=== PATIENT | female | born 1945 | race African-American/Black ===

== ENCOUNTER 2019-05-22 16:35 | Emergency (ER) | payer MEDICARE, MEDICAID ==
[~2019-05-22] VITALS: Ht 170.2 cm; Wt 91.0 kg
[2019-05-22] MEDS ORDERED: SODIUM CHLORIDE 0.9% 1,000 ML IV ONE (22:33)
[2019-05-22 23:10] LABS: BASOPHILS % 0.4 % (0.0-2.0); EOSINOPHILS % 3.6 % (0.0-5.0); HEMATOCRIT. 34.8 % (36.0-48.0); HEMOGLOBIN. 11.5 g/dL (12.0-16.0); LYMPHOCYTES % 35.9 % (20.0-50.0); MEAN CORPUSCULAR HEMOGLOBIN 27.4 pg (28.0-32.0); MEAN PLATELET VOLUME 9.4 fl (7.4-10.4); MONOCYTES % 6.4 % (2.0-8.0); NEUTROPHILS % 53.7 % (40.0-76.0); PLATELET 241 x1000/uL (130-400); RED CELL DISTRIBUTION WIDTH 15.2 % (11.6-14.6)
[2019-05-22 23:14] LABS: CHLORIDE 113 mEq/L (98-107)
[2019-05-22 23:18] LABS: PROTHROMBIN TIME 10.1 sec (9.6-11.0)
[2019-05-23 01:22] LABS: CLARITY URINE CLEAR (CLEAR); COLOR URINE YELLOW (YELLOW); KETONES URINE NEGATIVE (NEGATIVE); LEUKOCYTE ESTERASE URINE NEGATIVE (NEGATIVE); NITRITE URINE NEGATIVE (NEGATIVE); OCCULT BLOOD URINE NEGATIVE (NEGATIVE); PROTEIN URINE 3+ (NEGATIVE); SPECIFIC GRAVITY URINE 1.019 (1.005-1.030); UROBILINOGEN URINE 0.2 E.U./dL (0.2-1.0)
[2019-05-23] MEDS ORDERED: SODIUM CHLORIDE 0.45% 1,000 ML IV SCH (07:38)
[2019-05-23] MEDS ORDERED: GUAIFENESIN 200MG/10ML SUGAR FREE UDC PO PRN (07:45)
[2019-05-23] MEDS ORDERED: ENOXAPARIN 40MG/0.4ML SYR SUBCUT SCH (07:45)
[2019-05-23] MEDS ORDERED: DOCUSATE SODIUM 100MG CAPSULE PO PRN (07:45)
[2019-05-23] MEDS ORDERED: ACETAMINOPHEN 650MG SUPP PR PRN (07:45)
[2019-05-23] MEDS ORDERED: ACETAMINOPHEN 650MG/20.3ML UDC GT PRN (07:45)
[2019-05-23] MEDS ORDERED: ONDANSETRON HCL 4MG/2ML INJ IV PRN (07:45)
[2019-05-23] MEDS ORDERED: HYDROCODONE/ACETAMINOPHEN 5/325MG TABLET PO PRN (07:45)
[2019-05-23] MEDS ORDERED: IPRATROPIUM/ALBUTEROL 0.5-3(2.5)MG/3ML NEB HHN PRN (07:45)
[2019-05-23] MEDS ORDERED: ACETAMINOPHEN 325MG TABLET PO PRN (07:45)
[2019-05-23] MEDS ORDERED: DIPHENHYDRAMINE 50MG/ML VIAL IV PRN (07:45)
[2019-05-23] MEDS ORDERED: NA PHOS,M-B/NA PHOS,DI-BA ENEMA 118ML PR PRN (07:45)
[2019-05-23] MEDS ORDERED: CLONIDINE 0.1MG TABLET PO PRN (07:45)
[2019-05-23] MEDS ORDERED: AMLODIPINE 10MG TABLET PO SCH (09:00)
[2019-05-23 11:15] LABS: *AMPHETAMINES SCREEN URINE NEGATIVE (NEGATIVE); *BARBITURATES SCREEN URINE NEGATIVE (NEGATIVE)
[2019-05-23 11:16] LABS: *BENZODIAZEPINES SCREEN URINE NEGATIVE (NEGATIVE); *COCAINE SCREEN URINE NEGATIVE (NEGATIVE); CANNABINOID URINE SCREEN NEGATIVE (NEGATIVE); METHADONE URINE SCREEN NEGATIVE (NEGATIVE); OPIATES URINE SCREEN PRESUMTIVE POSITIVE (NEGATIVE); PHENCYCLIDINE URINE SCREEN NEGATIVE (NEGATIVE)
[2019-05-23 12:00] VITALS: BP 169/81
== END 2019-05-23 14:40 | disposition left against medical advice (07) ==
LOC: ER 16:35 → EDBEDREQ 05-23 00:14 → EDBEDREQTM 05-23 01:31 → EDBEDREQ 05-23 01:31 → ER 05-23 14:40 → CANBEDREQ 05-23 15:56
DX: R53.1 Weakness (principal); N17.9 Acute kidney failure, unspecified; F17.290 Nicotine dependence, other tobacco product, uncomplicated; E11.9 Type 2 diabetes mellitus without complications
CPT/HCPCS: 36415; 70450; 71045; 74176; 80053; 80305; 81003; 82962; 83880; 84484; 85025; 85610; 93005; 99284; 99406; J7030

== ENCOUNTER 2019-09-16 01:39 | Inpatient (IN) | payer BC, MEDICAID ==
[~2019-09-16] VITALS: Ht 172.7 cm; Wt 97.5 kg
[2019-09-16 02:13] LABS: HEMATOCRIT. 43.9 % (36.0-48.0); HEMOGLOBIN. 14.5 g/dL (12.0-16.0); MEAN CORPUSCULAR HEMOGLOBIN 27.6 pg (28.0-32.0); MEAN CORPUSCULAR VOLUME 83.6 fL (81.0-99.0); MEAN PLATELET VOLUME 10.4 fl (7.4-10.4); PLATELET 327 x1000/uL (130-400); RED BLOOD CELL COUNT 5.25 mill/uL (4.2-5.4); RED CELL DISTRIBUTION WIDTH 16.5 % (11.6-14.6)
[2019-09-16] MEDS ORDERED: FUROSEMIDE 40MG/4ML VIAL IVP ONE (02:15)
[2019-09-16 02:17] LABS: CHLORIDE 108 mEq/L (98-107)
[2019-09-16 02:19] LABS: INR 0.9; PROTHROMBIN TIME 9.6 sec (9.6-11.0)
[2019-09-16] MEDS ORDERED: PIPERACILLIN/TAZ 3.375G PREMIX 50 ML IV ONE (02:30)
[2019-09-16 03:51] LABS: PLATELET ESTIMATE NORMAL
[2019-09-16 04:59] LABS: BG BASE EXCESS -3.7 mmol/L (-2.0-2.0); BG CARBOXYHEMOGLOBIN 1.3 % (0.5-1.5); BG DEOXYHEMOGLOBIN 2.7 % (0.0-5.0); BG FRACTION INSPIRED OXYGEN 100; BG HCO3 ACT 20.9 mmol/L (22.0-26.0); BG METHEMOGLOBIN 0.2 % (0.0-1.5); BG OXYGEN SATURATION 97.3 % (92.0-98.5); BG OXYHEMOGLOBIN 95.8 % (94.0-97.0); BG PCO2 36.9 mmHg (35.0-45.0); BG PH 7.372 (7.350-7.450); BG PO2 100.8 mmHg (75.0-100.0); BG SAMPLE SITE RIGHT BRACHIAL; BG TOTAL HEMOGLOBIN 13.2 g/dL (12.0-18.0); BG VENT MODE MASK - NRB
[2019-09-16] MEDS ORDERED: HYDROCODONE/ACETAMINOPHEN 5/325MG TABLET PO PRN (09:20)
[2019-09-16] MEDS ORDERED: DEXTROSE 50% WATER 50ML SYRINGE IV PRN (09:30)
[2019-09-16] MEDS: BLOOD SUGAR DIAGNOSTIC STRIP TEST SCH ×4 (09:39→20:53)
[2019-09-16] MEDS ORDERED: ACETAMINOPHEN 325MG TABLET PO PRN (12:15)
[2019-09-16] MEDS ORDERED: ACETAMINOPHEN 650MG SUPP PR PRN (12:15)
[2019-09-16] MEDS ORDERED: GUAIFENESIN 200MG/10ML SUGAR FREE UDC PO PRN (12:15)
[2019-09-16] MEDS ORDERED: ONDANSETRON HCL 4MG/2ML INJ IV PRN (12:15)
[2019-09-16] MEDS ORDERED: IPRATROPIUM/ALBUTEROL 0.5-3(2.5)MG/3ML NEB NEB PRN (12:15)
[2019-09-16] MEDS ORDERED: DOCUSATE SODIUM 100MG CAPSULE PO PRN (12:15)
[2019-09-16] MEDS ORDERED: DIPHENHYDRAMINE 50MG/ML VIAL IV PRN (12:15)
[2019-09-16] MEDS ORDERED: NA PHOS,M-B/NA PHOS,DI-BA ENEMA 118ML PR PRN (12:15)
[2019-09-16] MEDS ORDERED: MAGNESIUM/ALUMINUM HYDROXIDE/SIMETHICONE 30ML UDC PO PRN (12:15)
[2019-09-16 12:55] LABS: BG BASE EXCESS -2.4 mmol/L (-2.0-2.0); BG CARBOXYHEMOGLOBIN 0.3 % (0.5-1.5); BG DEOXYHEMOGLOBIN 5.4 % (0.0-5.0); BG FRACTION INSPIRED OXYGEN 21; BG HCO3 ACT 21.6 mmol/L (22.0-26.0); BG METHEMOGLOBIN 0.2 % (0.0-1.5); BG OXYGEN SATURATION 94.6 % (92.0-98.5); BG OXYHEMOGLOBIN 94.1 % (94.0-97.0); BG PCO2 34.8 mmHg (35.0-45.0); BG PH 7.411 (7.350-7.450); BG PO2 74.6 mmHg (75.0-100.0); BG SAMPLE SITE RIGHT BRACHIAL; BG TOTAL HEMOGLOBIN 12.3 g/dL (12.0-18.0); BG VENT MODE ROOM AIR
[2019-09-16] MEDS ORDERED: LEVOFLOXACIN 500MG PREMIX 100 ML IV SCH (13:00)
[2019-09-16] MEDS: INSULIN LISPRO (MEDIUM DOSE) 100 UNITS/ML SUBCUT SCH ×3 (13:54→20:58)
[2019-09-16] MEDS: PANTOPRAZOLE SODIUM 40 MG/VIAL IV SCH ×2 (14:00→20:53)
[2019-09-16 14:34] LABS: CREATINE KINASE MB FRACTION 2.3 ng/mL (0.5-3.6)
[2019-09-16] MEDS: HYDROCODONE/ACETAMINOPHEN 5/325MG TABLET PO PRN (14:34)
[2019-09-16] MEDS: CLONIDINE 0.1MG TABLET PO PRN (14:34)
[2019-09-16] MEDS ORDERED: SORBITOL 70% SOLN 30ML PO ONE (15:15)
[2019-09-16 15:23] LABS: CLARITY URINE CLEAR (CLEAR); COLOR URINE YELLOW (YELLOW); KETONES URINE NEGATIVE (NEGATIVE); LEUKOCYTE ESTERASE URINE NEGATIVE (NEGATIVE); NITRITE URINE NEGATIVE (NEGATIVE); OCCULT BLOOD URINE NEGATIVE (NEGATIVE); PH URINE 5.5 (4.5-8.0); PROTEIN URINE 3+ (NEGATIVE); SPECIFIC GRAVITY URINE 1.013 (1.005-1.030); UROBILINOGEN URINE 0.2 E.U./dL (0.2-1.0)
[2019-09-16 15:40] LABS: *AMPHETAMINES SCREEN URINE NEGATIVE (NEGATIVE); *BARBITURATES SCREEN URINE NEGATIVE (NEGATIVE)
[2019-09-16 15:41] LABS: *BENZODIAZEPINES SCREEN URINE NEGATIVE (NEGATIVE); *COCAINE SCREEN URINE NEGATIVE (NEGATIVE); METHADONE URINE SCREEN NEGATIVE (NEGATIVE); OPIATES URINE SCREEN PRESUMTIVE POSITIVE (NEGATIVE)
[2019-09-16 15:42] LABS: CANNABINOID URINE SCREEN NEGATIVE (NEGATIVE)
[2019-09-16 15:43] LABS: PHENCYCLIDINE URINE SCREEN NEGATIVE (NEGATIVE)
[2019-09-16 18:00] VITALS: BP 161/87
[2019-09-16 18:07] VITALS: BP 170/72
[2019-09-16] MEDS: FUROSEMIDE 40MG/4ML VIAL IVP SCH (18:19)
[2019-09-16] MEDS: AMLODIPINE 5MG TABLET PO SCH (18:19)
[2019-09-16 20:00] VITALS: BP 151/68
[2019-09-16] MEDS: PHENYLEPHRINE/SHK LV/MO/PET,WH RECTAL OINT 57GM PR SCH (20:10)
[2019-09-16] MEDS ORDERED: SORBITOL 70% SOLN 30ML PO NR (20:15)
[2019-09-16] MEDS: LORAZEPAM 0.5MG TABLET PO PRN (21:33)
[2019-09-16] MEDS: HYDRALAZINE HCL 50MG TABLET PO SCH (21:33)
[2019-09-16 22:02] VITALS: BP 154/90
[2019-09-17] VITALS (12 sets, daily range): BP systolic 119–172; BP diastolic 52–101
[2019-09-17] MEDS: HYDROCODONE/ACETAMINOPHEN 5/325MG TABLET PO PRN ×3 (00:05→22:47)
[2019-09-17] MEDS: PHENYLEPHRINE/SHK LV/MO/PET,WH RECTAL OINT 57GM PR SCH ×4 (00:10→17:29)
[2019-09-17] MEDS: IPRATROPIUM/ALBUTEROL 0.5-3(2.5)MG/3ML NEB NEB SCH ×4 (01:30→21:35)
[2019-09-17] MEDS: BLOOD SUGAR DIAGNOSTIC STRIP TEST SCH ×4 (05:57→20:34)
[2019-09-17] MEDS: HYDRALAZINE HCL 50MG TABLET PO SCH ×3 (06:01→21:30)
[2019-09-17 07:17] LABS: BASOPHILS % 1.1 % (0.0-2.0); EOSINOPHILS % 2.7 % (0.0-5.0); HEMATOCRIT. 37.1 % (36.0-48.0); HEMOGLOBIN. 12.1 g/dL (12.0-16.0); MEAN CORPUSCULAR HEMOGLOBIN 27.2 pg (28.0-32.0); MEAN CORPUSCULAR VOLUME 83.2 fL (81.0-99.0); MEAN PLATELET VOLUME 9.2 fl (7.4-10.4); MONOCYTES % 4.9 % (2.0-8.0); NEUTROPHILS % 41.3 % (40.0-76.0); PLATELET 185 x1000/uL (130-400); RED BLOOD CELL COUNT 4.45 mill/uL (4.2-5.4); RED CELL DISTRIBUTION WIDTH 15.6 % (11.6-14.6)
[2019-09-17 07:22] LABS: CHLORIDE 107 mEq/L (98-107)
[2019-09-17 07:29] LABS: LDL CHOLESTEROL 78 mg/dL (5-100)
[2019-09-17 07:30] LABS: HDL CHOLESTEROL 65 mg/dL (40-59); TOTAL IRON BINDING CAPACITY 258 ug/dL (250-450)
[2019-09-17 07:32] LABS: CREATINE KINASE 77 IU/L (26-192)
[2019-09-17 07:33] LABS: CREATINE KINASE MB FRACTION 1.4 ng/mL (0.5-3.6)
[2019-09-17] MEDS: INSULIN LISPRO (MEDIUM DOSE) 100 UNITS/ML SUBCUT SCH ×4 (08:04→20:27)
[2019-09-17] MEDS: AMLODIPINE 5MG TABLET PO SCH (08:06)
[2019-09-17] MEDS: PANTOPRAZOLE SODIUM 40 MG/VIAL IV SCH ×2 (08:08→20:11)
[2019-09-17] MEDS: FUROSEMIDE 40MG/4ML VIAL IVP SCH (08:16)
[2019-09-17] MEDS ORDERED: CARVEDILOL 3.125 MG TABLET PO NR (12:00)
[2019-09-17] MEDS ORDERED: LEVOFLOXACIN 250MG PREMIX 50 ML IV SCH (14:00)
[2019-09-17] MEDS: FUROSEMIDE 100MG/10ML VIAL IV SCH ×2 (17:00→17:28)
[2019-09-17] MEDS: CARVEDILOL 3.125 MG TABLET PO SCH (20:11)
[2019-09-17] MEDS ORDERED: MAGNESIUM/ALUMINUM HYDROXIDE/SIMETHICONE 30ML UDC PO PRN (20:30)
[2019-09-17] MEDS: LORAZEPAM 0.5MG TABLET PO PRN (21:30)
[2019-09-18 00:01] VITALS: BP 157/54
[2019-09-18] MEDS: IPRATROPIUM/ALBUTEROL 0.5-3(2.5)MG/3ML NEB NEB SCH ×2 (01:49→09:20)
[2019-09-18 02:00] VITALS: BP 165/84
[2019-09-18 04:02] VITALS: BP 172/112
[2019-09-18] MEDS: CLONIDINE 0.1MG TABLET PO PRN (04:07)
[2019-09-18 06:01] VITALS: BP 170/86
[2019-09-18] MEDS: HYDRALAZINE HCL 50MG TABLET PO SCH ×2 (06:19→11:38)
[2019-09-18] MEDS: BLOOD SUGAR DIAGNOSTIC STRIP TEST SCH (06:20)
[2019-09-18] MEDS: PHENYLEPHRINE/SHK LV/MO/PET,WH RECTAL OINT 57GM PR SCH ×2 (06:20)
[2019-09-18] MEDS: INSULIN LISPRO (MEDIUM DOSE) 100 UNITS/ML SUBCUT SCH (06:26)
[2019-09-18 08:00] VITALS: BP 156/72
[2019-09-18 08:07] LABS: BASOPHILS % 0.7 % (0.0-2.0); HEMATOCRIT. 36.3 % (36.0-48.0); HEMOGLOBIN. 11.8 g/dL (12.0-16.0); LYMPHOCYTES % 45.9 % (20.0-50.0); MEAN CORPUSCULAR HEMOGLOBIN 26.8 pg (28.0-32.0); MEAN CORPUSCULAR VOLUME 82.6 fL (81.0-99.0); NEUTROPHILS % 42.4 % (40.0-76.0); PLATELET 192 x1000/uL (130-400); RED CELL DISTRIBUTION WIDTH 15.5 % (11.6-14.6)
[2019-09-18] MEDS: PANTOPRAZOLE SODIUM 40 MG/VIAL IV SCH (08:30)
[2019-09-18] MEDS: FUROSEMIDE 100MG/10ML VIAL IV SCH (08:31)
[2019-09-18] MEDS: AMLODIPINE 5MG TABLET PO SCH (08:31)
[2019-09-18] MEDS: CARVEDILOL 3.125 MG TABLET PO SCH (08:31)
[2019-09-18 08:38] VITALS: BP 156/72
[2019-09-18] MEDS: HYDROCODONE/ACETAMINOPHEN 5/325MG TABLET PO PRN (08:38)
[2019-09-18] MEDS ORDERED: FURO-151 MT (10:57)
[2019-09-18] MEDS ORDERED: LOSA100T32 MT (10:57)
[2019-09-18] MEDS ORDERED: CARV12.545 MT (10:57)
[2019-09-18] MEDS ORDERED: POTA-79 MT (10:57)
[2019-09-18] MEDS ORDERED: CARVEDILOL 6.25 MG TABLET PO SCH (21:00)
== END 2019-09-18 11:52 | disposition home or self-care (01) | DRG 291 ==
LOC: ER 01:39 → 3WST 04:15 → EDBEDREQTM 04:20 → EDBEDREQSVC 04:20 → EDBEDREQ 04:20 → SUPCPDRO 12:11 → ENRESERV 16:07
PROVIDERS: ADMIT Internal Medicine; ATTEND Internal Medicine
PROC: 5A09357 Assistance with Respiratory Ventilation, Less than 24 Consecutive Hours, Continuous Positive Airway Pressure (ICD-10-PCS; principal; 2019-09-16)
DX: I13.0 Hypertensive heart and chronic kidney disease with heart failure and stage 1 through stage 4 chronic kidney disease, or unspecified chronic kidney disease (principal); J18.9 Pneumonia, unspecified organism; I50.23 Acute on chronic systolic (congestive) heart failure; K92.1 Melena; I42.0 Dilated cardiomyopathy; Z91.19 Patient's noncompliance with other medical treatment and regimen; F17.210 Nicotine dependence, cigarettes, uncomplicated; K57.90 Diverticulosis of intestine, part unspecified, without perforation or abscess without bleeding; D25.9 Leiomyoma of uterus, unspecified; E11.22 Type 2 diabetes mellitus with diabetic chronic kidney disease; E66.09 Other obesity due to excess calories; Z60.2 Problems related to living alone; R06.03 Acute respiratory distress; N18.9 Chronic kidney disease, unspecified; K59.09 Other constipation; Z82.3 Family history of stroke; Z68.32 Body mass index [BMI] 32.0-32.9, adult; Z71.6 Tobacco abuse counseling; Z82.49 Family history of ischemic heart disease and other diseases of the circulatory system; Z91.14 Patient's other noncompliance with medication regimen
CPT/HCPCS: 36415; 36600; 71045; 74176; 80048; 80053; 80061; 80305; 81003; 82270; 82375; 82550; 82553; 82805; 82962; 83036; 83540; 83550; 83880; 84439; 84443; 84484; 85025; 86304; 93005; 93970; 94618; 97110; 97162; 99291; C9113; J1815; J1940; J1956; J2543

== ENCOUNTER 2019-09-25 21:58 | Emergency (ER) | payer BC, MEDICAID ==
[~2019-09-25] VITALS: Ht 167.6 cm; Wt 95.0 kg
[~2019-09-25 21:58] MED LIST: CARV12.545 MT; FURO-151 MT; LOSA100T32 MT; POTA-79 MT
[2019-09-25] MEDS ORDERED: FUROSEMIDE 40MG/4ML VIAL IVP ONE (22:45)
[2019-09-25 23:58] LABS: BASOPHILS % 1.1 % (0.0-2.0); EOSINOPHILS % 2.7 % (0.0-5.0); HEMATOCRIT. 39.6 % (36.0-48.0); HEMOGLOBIN. 12.9 g/dL (12.0-16.0); LYMPHOCYTES % 30.2 % (20.0-50.0); MEAN CORPUSCULAR HEMOGLOBIN 27.2 pg (28.0-32.0); MEAN CORPUSCULAR VOLUME 83.2 fL (81.0-99.0); MONOCYTES % 4.6 % (2.0-8.0); NEUTROPHILS % 61.4 % (40.0-76.0); PLATELET 205 x1000/uL (130-400); RED BLOOD CELL COUNT 4.76 mill/uL (4.2-5.4); RED CELL DISTRIBUTION WIDTH 15.3 % (11.6-14.6)
[2019-09-26 00:04] LABS: CHLORIDE 107 mEq/L (98-107)
[2019-09-26] MEDS ORDERED: ENALAPRIL 2.5MG/2ML VIAL 2ML IV ONE (00:15)
[2019-09-26 10:15] VITALS: BP 154/82
== END 2019-09-26 10:39 | disposition left against medical advice (07) ==
LOC: ER 21:58 → CANBEDREQ 09-26 15:58
DX: R06.02 Shortness of breath (principal); I11.0 Hypertensive heart disease with heart failure; I50.9 Heart failure, unspecified; E11.9 Type 2 diabetes mellitus without complications; Z79.899 Other long term (current) drug therapy
CPT/HCPCS: 36415; 71045; 80053; 83880; 84484; 85025; 93005; 96374; 96375; 99285; J1940; J3490

== ENCOUNTER 2019-10-12 12:19 | Inpatient (IN) | payer BC, MEDICAID ==
[~2019-10-12] VITALS: Ht 165.1 cm; Wt 93.0 kg
[2019-10-12] MEDS ORDERED: MECLIZINE 25MG TABLET PO ONE (13:15)
[2019-10-12 14:51] LABS: HEMATOCRIT. 38.1 % (36.0-48.0); HEMOGLOBIN. 12.8 g/dL (12.0-16.0); LYMPHOCYTES % 37.3 % (20.0-50.0); MEAN CORPUSCULAR HEMOGLOBIN 27.9 pg (28.0-32.0); MEAN CORPUSCULAR VOLUME 83.1 fL (81.0-99.0); MEAN PLATELET VOLUME 9.6 fl (7.4-10.4); MONOCYTES % 4.6 % (2.0-8.0); NEUTROPHILS % 54.1 % (40.0-76.0); PLATELET 181 x1000/uL (130-400); RED BLOOD CELL COUNT 4.59 mill/uL (4.2-5.4); RED CELL DISTRIBUTION WIDTH 14.8 % (11.6-14.6)
[2019-10-12 15:00] LABS: CHLORIDE 109 mEq/L (98-107)
[2019-10-12] MEDS: SODIUM CHLORIDE 0.9% 1,000 ML IV ONE ×2 (15:00→18:36)
[2019-10-12 15:03] LABS: PARTIAL THROMBOPLASTIN TIME 28.5 sec (23.4-31.0); PROTHROMBIN TIME 10.4 sec (9.6-11.0)
[2019-10-12] MEDS ORDERED: ASPIRIN 81MG TABLET PO ONE ×2 (15:30→16:00)
[2019-10-12] MEDS ORDERED: ACETAMINOPHEN 325MG TABLET PO ONE (16:15)
[2019-10-12] MEDS: CLONIDINE 0.2MG TABLET PO ONE ×2 (16:22→16:26)
[2019-10-12 23:00] VITALS: BP 187/94
[2019-10-12] MEDS: LACTULOSE 20G/30ML UDC PO SCH ×2 (23:21→23:25)
[2019-10-12] MEDS ORDERED: INSU100I28 SQ (23:42)
[2019-10-12] MEDS ORDERED: GLIP10TA10 PO (23:42)
[2019-10-12] MEDS ORDERED: ASPI-1079 PO (23:42)
[2019-10-13] VITALS: BP 206/134
[2019-10-13] MEDS: ZOLPIDEM TARTRATE 5MG TABLET PO PRN ×3 (00:33→21:14)
[2019-10-13] MEDS ORDERED: ACETAMINOPHEN 325MG TABLET PO PRN (02:00)
[2019-10-13] MEDS ORDERED: DEXTROSE 50% WATER 50ML SYRINGE IV PRN (02:15)
[2019-10-13] MEDS: CARVEDILOL 12.5MG TABLET PO SCH ×3 (02:44→21:14)
[2019-10-13] MEDS: LOSARTAN POTASSIUM 100 MG TABLET PO SCH ×2 (02:44→08:44)
[2019-10-13] MEDS: CLONIDINE 0.2MG TABLET PO PRN ×3 (02:44→17:29)
[2019-10-13] MEDS: MAGNESIUM HYDROXIDE 400MG/5ML 30ML UDC PO PRN ×2 (02:49→16:06)
[2019-10-13 04:00] VITALS: BP 192/101
[2019-10-13] MEDS: BLOOD SUGAR DIAGNOSTIC STRIP TEST SCH ×4 (06:15→21:32)
[2019-10-13] MEDS: GLIPIZIDE 10MG TABLET PO SCH (06:20)
[2019-10-13] MEDS: INSULIN LISPRO 100 UNITS/ML SUBCUT SCH ×4 (06:21→21:31)
[2019-10-13] MEDS ORDERED: BLOOD SUGAR DIAGNOSTIC STRIP TEST SCH (06:45)
[2019-10-13 08:00] VITALS: BP 177/94
[2019-10-13] MEDS ORDERED: NA PHOS,M-B/NA PHOS,DI-BA ENEMA 118ML PR NR (08:15)
[2019-10-13] MEDS: ASPIRIN 81MG TABLET PO SCH (08:40)
[2019-10-13] MEDS: POTASSIUM CHLORIDE 20MEQ TABLET SR PO SCH (08:41)
[2019-10-13] MEDS: ENOXAPARIN 40MG/0.4ML SYR SUBCUT SCH (08:44)
[2019-10-13] MEDS ORDERED: FUROSEMIDE 40MG TABLET PO SCH (09:00)
[2019-10-13 09:13] LABS: BASOPHILS % 0.5 % (0.0-2.0); EOSINOPHILS % 3.2 % (0.0-5.0); HEMATOCRIT. 36.1 % (36.0-48.0); HEMOGLOBIN. 12.3 g/dL (12.0-16.0); LYMPHOCYTES % 40.7 % (20.0-50.0); MEAN CORPUSCULAR HEMOGLOBIN 28.5 pg (28.0-32.0); MEAN CORPUSCULAR VOLUME 83.2 fL (81.0-99.0); MEAN PLATELET VOLUME 9.1 fl (7.4-10.4); MONOCYTES % 4.7 % (2.0-8.0); NEUTROPHILS % 50.9 % (40.0-76.0); PLATELET 174 x1000/uL (130-400); RED BLOOD CELL COUNT 4.33 mill/uL (4.2-5.4)
[2019-10-13 09:53] LABS: CREATINE KINASE MB FRACTION 2.4 ng/mL (0.5-3.6)
[2019-10-13] MEDS: ONDANSETRON HCL 4MG/2ML INJ IV PRN ×2 (09:59→16:35)
[2019-10-13 16:00] VITALS: BP 158/93
[2019-10-13] MEDS: FUROSEMIDE 40MG/4ML VIAL IVP SCH (16:36)
[2019-10-13] MEDS: PSYLLIUM SEED PACKET PO SCH (16:39)
[2019-10-13 17:22] VITALS: BP_SYST 154; BP_SYST 161; BP_SYST 165; BP_DIAS 62; BP_DIAS 87; BP_DIAS 97
[2019-10-13] MEDS ORDERED: ALPRAZOLAM 0.25 MG TABLET PO PRN (19:45)
[2019-10-13 20:00] VITALS: BP 161/78
[2019-10-13] MEDS ORDERED: MINERAL OIL ENEMA 133ML PR NR (21:00)
[2019-10-13] MEDS: HYDRALAZINE HCL 50MG TABLET PO SCH (21:14)
[2019-10-13] MEDS ORDERED: HYDROCODONE/APAP 7.5/325MG 1 TAB TABLET PO PRN (22:00)
[2019-10-14] VITALS: BP 141/70
[2019-10-14 04:00] VITALS: BP 147/67
[2019-10-14] MEDS: GLIPIZIDE 10MG TABLET PO SCH (06:05)
[2019-10-14] MEDS: INSULIN LISPRO 100 UNITS/ML SUBCUT SCH (06:22)
[2019-10-14] MEDS: BLOOD SUGAR DIAGNOSTIC STRIP TEST SCH (06:23)
[2019-10-14] MEDS: ENOXAPARIN 40MG/0.4ML SYR SUBCUT SCH (09:00)
[2019-10-14] MEDS: LOSARTAN POTASSIUM 100 MG TABLET PO SCH (09:00)
[2019-10-14] MEDS: ASPIRIN 81MG TABLET PO SCH (09:00)
[2019-10-14] MEDS: PSYLLIUM SEED PACKET PO SCH (09:00)
[2019-10-14] MEDS ORDERED: PSYLLIUM SEED PACKET PO SCH (09:00)
[2019-10-14] MEDS: POTASSIUM CHLORIDE 20MEQ TABLET SR PO SCH (09:00)
[2019-10-14] MEDS: CARVEDILOL 12.5MG TABLET PO SCH (09:00)
[2019-10-14] MEDS: FUROSEMIDE 40MG/4ML VIAL IVP SCH (09:00)
[2019-10-14] MEDS: HYDRALAZINE HCL 50MG TABLET PO SCH (09:00)
[2019-10-14] MEDS ORDERED: HYDRALAZINE HCL 100MG TABLET PO SCH (21:00)
== END 2019-10-14 09:45 | disposition left against medical advice (07) | DRG 291 ==
LOC: ER 12:19 → MICUSO 15:58 → 5WST 23:11
PROVIDERS: ADMIT Internal Medicine; ATTEND Internal Medicine
DX: I13.0 Hypertensive heart and chronic kidney disease with heart failure and stage 1 through stage 4 chronic kidney disease, or unspecified chronic kidney disease (principal); I50.23 Acute on chronic systolic (congestive) heart failure; E43 Unspecified severe protein-calorie malnutrition; J98.11 Atelectasis; N17.9 Acute kidney failure, unspecified; G90.8 Other disorders of autonomic nervous system; I42.9 Cardiomyopathy, unspecified; I16.0 Hypertensive urgency; E66.9 Obesity, unspecified; N18.9 Chronic kidney disease, unspecified; E87.8 Other disorders of electrolyte and fluid balance, not elsewhere classified; K59.09 Other constipation; E11.22 Type 2 diabetes mellitus with diabetic chronic kidney disease; Z87.891 Personal history of nicotine dependence; Z68.34 Body mass index [BMI] 34.0-34.9, adult
CPT/HCPCS: 36415; 71045; 74176; 80048; 80053; 82553; 82962; 83036; 83880; 84484; 85025; 93005; 99285; J1650; J1815; J1940; J2405; J7030; J8597

== ENCOUNTER 2019-10-17 22:45 | Inpatient (IN) | payer BC, MEDICAID ==
[~2019-10-17] VITALS: Ht 172.7 cm; Wt 93.9 kg
[~2019-10-17 22:45] MED LIST changes: +ASPI-1079 PO; +GLIP10TA10 PO; +INSU100I28 SQ
[2019-10-17] MEDS ORDERED: MAGNESIUM 2 G PREMIX 50 ML IV STA (22:47)
[2019-10-17] MEDS ORDERED: METHYLPREDNISOLONE SOD SUCC 125 MG/2 ML VIAL IV STA (22:47)
[2019-10-17] MEDS ORDERED: ALBUTEROL (0.083%) 2.5MG/3ML NEB HHN STA (22:47)
[2019-10-17] MEDS ORDERED: IPRATROPIUM BROMIDE (0.02%) 0.5MG/2.5ML NEB HHN STA (22:47)
[2019-10-17] MEDS ORDERED: FUROSEMIDE 40MG/4ML VIAL IVP ONE (23:30)
[2019-10-17] MEDS ORDERED: ENALAPRIL 1.25MG/ML VIAL 1ML IV ONE (23:30)
[2019-10-17] MEDS ORDERED: ENALAPRIL 2.5MG/2ML VIAL 2ML IV ONE (23:30)
[2019-10-17 23:32] LABS: CHLORIDE 107 mEq/L (98-107)
[2019-10-17 23:34] LABS: BASOPHILS % 0.8 % (0.0-2.0); EOSINOPHILS % 3.6 % (0.0-5.0); HEMATOCRIT. 42.4 % (36.0-48.0); HEMOGLOBIN. 14.2 g/dL (12.0-16.0); LYMPHOCYTES % 59.2 % (20.0-50.0); MEAN CORPUSCULAR HEMOGLOBIN 28.2 pg (28.0-32.0); MEAN PLATELET VOLUME 9.7 fl (7.4-10.4); MONOCYTES % 4.7 % (2.0-8.0); NEUTROPHILS % 31.7 % (40.0-76.0); PLATELET 243 x1000/uL (130-400); RED BLOOD CELL COUNT 5.04 mill/uL (4.2-5.4); RED CELL DISTRIBUTION WIDTH 14.8 % (11.6-14.6)
[2019-10-18] VITALS (10 sets, daily range): BP systolic 143–182; BP diastolic 79–143
[2019-10-18] MEDS ORDERED: ACETAMINOPHEN 650MG/20.3ML UDC PO PRN (07:00)
[2019-10-18] MEDS ORDERED: DEXTROSE 50% WATER 50ML SYRINGE IV PRN (07:00)
[2019-10-18] MEDS ORDERED: CLONIDINE 0.2MG TABLET PO PRN (07:00)
[2019-10-18] MEDS: INSULIN LISPRO 100 UNITS/ML SUBCUT SCH ×3 (08:37→16:26)
[2019-10-18] MEDS: METHYLPREDNISOLONE SOD SUCC 40 MG/ML VIAL IV SCH ×2 (08:37→16:25)
[2019-10-18] MEDS ORDERED: FUROSEMIDE 40MG/4ML VIAL IVP SCH ×2 (09:00→20:00)
[2019-10-18] MEDS ORDERED: ENOXAPARIN 30MG/0.3ML SYR SUBCUT SCH (09:00)
[2019-10-18] MEDS ORDERED: ENOXAPARIN 40MG/0.4ML SYR SUBCUT SCH (09:00)
[2019-10-18 09:32] LABS: BASOPHILS % 0.2 % (0.0-2.0); HEMATOCRIT. 38.3 % (36.0-48.0); HEMOGLOBIN. 12.6 g/dL (12.0-16.0); LYMPHOCYTES % 11.2 % (20.0-50.0); MEAN CORPUSCULAR HEMOGLOBIN 27.7 pg (28.0-32.0); MEAN CORPUSCULAR VOLUME 84.5 fL (81.0-99.0); MEAN PLATELET VOLUME 10.2 fl (7.4-10.4); MONOCYTES % 0.6 % (2.0-8.0); PLATELET 178 x1000/uL (130-400); RED BLOOD CELL COUNT 4.54 mill/uL (4.2-5.4); RED CELL DISTRIBUTION WIDTH 14.7 % (11.6-14.6)
[2019-10-18 10:06] LABS: BG BASE EXCESS -5.7 mmol/L (-2.0-2.0); BG CARBOXYHEMOGLOBIN 0.5 % (0.5-1.5); BG DEOXYHEMOGLOBIN 1.8 % (0.0-5.0); BG FRACTION INSPIRED OXYGEN 36; BG HCO3 ACT 19.4 mmol/L (22.0-26.0); BG METHEMOGLOBIN 0.1 % (0.0-1.5); BG OXYGEN SATURATION 98.2 % (92.0-98.5); BG OXYHEMOGLOBIN 97.6 % (94.0-97.0); BG PCO2 36.6 mmHg (35.0-45.0); BG PH 7.342 (7.350-7.450); BG SAMPLE SITE RIGHT RADIAL; BG TOTAL HEMOGLOBIN 12.4 g/dL (12.0-18.0); BG VENT MODE NASAL CANNULA
[2019-10-18] MEDS: BLOOD SUGAR DIAGNOSTIC STRIP TEST SCH ×2 (11:16→16:13)
[2019-10-18] MEDS ORDERED: INSULIN LISPRO 100 UNITS/ML SUBCUT NR (11:30)
[2019-10-18] MEDS ORDERED: DIPHENHYDRAMINE 25MG CAPSULE PO PRN (11:30)
[2019-10-18] MEDS ORDERED: FUROSEMIDE 40MG/4ML VIAL IVP NR (15:30)
[2019-10-18] MEDS ORDERED: LOSARTAN POTASSIUM 100 MG TABLET PO SCH (15:30)
[2019-10-18 17:16] LABS: BG CARBOXYHEMOGLOBIN 2.2 % (0.5-1.5); BG DEOXYHEMOGLOBIN 0.5 % (0.0-5.0); BG FRACTION INSPIRED OXYGEN 100; BG METHEMOGLOBIN 0.2 % (0.0-1.5); BG OXYGEN SATURATION 99.5 % (92.0-98.5); BG OXYHEMOGLOBIN 97.1 % (94.0-97.0); BG PO2 338.1 mmHg (75.0-100.0); BG SAMPLE SITE RIGHT RADIAL; BG TIDAL VOLUME(mL) 505 mL; BG TOTAL HEMOGLOBIN 13.2 g/dL (12.0-18.0); BG VENT MODE MASK - BIPAP; BG VENT RATE 18 set
[2019-10-24] MEDS ORDERED: CLON0.2T MT (10:23)
== END 2019-10-18 18:47 | disposition short-term general hospital (02) | DRG 291 ==
LOC: ER 22:52 → MICUSO 23:57 → EDBEDREQ 10-18 00:06 → EDBEDREQTM 10-18 00:06 → 3WST 10-18 01:44
PROVIDERS: ADMIT Internal Medicine; ATTEND Internal Medicine
PROC: 5A09357 Assistance with Respiratory Ventilation, Less than 24 Consecutive Hours, Continuous Positive Airway Pressure (ICD-10-PCS; principal; 2019-10-17)
DX: I13.0 Hypertensive heart and chronic kidney disease with heart failure and stage 1 through stage 4 chronic kidney disease, or unspecified chronic kidney disease (principal); I50.23 Acute on chronic systolic (congestive) heart failure; J96.01 Acute respiratory failure with hypoxia; N17.0 Acute kidney failure with tubular necrosis; J44.1 Chronic obstructive pulmonary disease with (acute) exacerbation; E44.1 Mild protein-calorie malnutrition; E11.22 Type 2 diabetes mellitus with diabetic chronic kidney disease; F17.200 Nicotine dependence, unspecified, uncomplicated; I42.9 Cardiomyopathy, unspecified; E66.9 Obesity, unspecified; N18.9 Chronic kidney disease, unspecified; Z79.82 Long term (current) use of aspirin; Z79.4 Long term (current) use of insulin; Z79.899 Other long term (current) drug therapy; Z71.3 Dietary counseling and surveillance; Z71.6 Tobacco abuse counseling; Z68.31 Body mass index [BMI] 31.0-31.9, adult
CPT/HCPCS: 36415; 36600; 71045; 80048; 80053; 82375; 82805; 82962; 83036; 83880; 84484; 85025; 93005; 96365; 99285; J1650; J1815; J1940; J2920; J2930; J3475; J3490; Q0163

== ENCOUNTER 2020-07-20 22:21 | Inpatient (IN) | payer BC, MEDICAID ==
[~2020-07-20] VITALS: Ht 172.7 cm; Wt 97.5 kg
[~2020-07-20 22:21] MED LIST changes: +CLON0.2T MT
[2020-07-20] MEDS ORDERED: KETOROLAC 30MG/ML VIAL IV STA (22:47)
[2020-07-20] MEDS ORDERED: SODIUM CHLORIDE 0.9% 1,000 ML IV ONE (23:00)
[2020-07-20 23:16] LABS: EOSINOPHILS % 2.7 % (0.0-5.0); HEMATOCRIT. 35.9 % (36.0-48.0); HEMOGLOBIN. 11.7 g/dL (12.0-16.0); LYMPHOCYTES % 28.1 % (20.0-50.0); MEAN CORPUSCULAR HEMOGLOBIN 27.6 pg (28.0-32.0); MEAN CORPUSCULAR VOLUME 84.8 fL (81.0-99.0); MEAN PLATELET VOLUME 10.6 fl (7.4-10.4); MONOCYTES % 4.4 % (2.0-8.0); NEUTROPHILS % 63.8 % (40.0-76.0); PLATELET 169 x1000/uL (130-400); RED BLOOD CELL COUNT 4.23 mill/uL (4.2-5.4); RED CELL DISTRIBUTION WIDTH 15.3 % (11.6-14.6)
[2020-07-20 23:23] LABS: CHLORIDE 106 mEq/L (98-107)
[2020-07-21 01:07] LABS: CLARITY URINE CLOUDY (CLEAR); COLOR URINE YELLOW (YELLOW); KETONES URINE NEGATIVE (NEGATIVE); LEUKOCYTE ESTERASE URINE 2+ (NEGATIVE); NITRITE URINE NEGATIVE (NEGATIVE); OCCULT BLOOD URINE 2+ (NEGATIVE); PH URINE 5.5 (4.5-8.0); PROTEIN URINE 4+ (NEGATIVE); SPECIFIC GRAVITY URINE 1.027 (1.005-1.030); UROBILINOGEN URINE 0.2 E.U./dL (0.2-1.0)
[2020-07-21] MEDS ORDERED: CEFTRIAXONE 1 G PREMIX 50 ML IV NR (02:00)
[2020-07-21 03:30] VITALS: BP 192/113
[2020-07-21 04:00] VITALS: BP 192/113
[2020-07-21] MEDS ORDERED: MULT-1203 MT (04:17)
[2020-07-21] MEDS ORDERED: DOCUSATE SODIUM 100MG CAPSULE PO PRN (05:30)
[2020-07-21] MEDS ORDERED: ONDANSETRON HCL 4MG/2ML INJ IV PRN (05:30)
[2020-07-21] MEDS ORDERED: ACETAMINOPHEN 325MG TABLET PO PRN (05:30)
[2020-07-21] MEDS ORDERED: CLONIDINE 0.1MG TABLET PO PRN (05:30)
[2020-07-21] MEDS ORDERED: DEXTROSE 50% WATER 50ML SYRINGE IV PRN (05:45)
[2020-07-21] MEDS: BLOOD SUGAR DIAGNOSTIC STRIP TEST SCH ×2 (06:32→11:22)
[2020-07-21] MEDS: INSULIN LISPRO 100 UNITS/ML SUBCUT SCH ×2 (06:36→11:59)
[2020-07-21] MEDS ORDERED: FUROSEMIDE 40MG TABLET PO SCH (07:15)
[2020-07-21] MEDS ORDERED: GLIPIZIDE 10MG TABLET PO SCH (07:15)
[2020-07-21] MEDS ORDERED: ENOXAPARIN 30MG/0.3ML SYR SUBCUT SCH (09:00)
[2020-07-21] MEDS ORDERED: CARVEDILOL 12.5MG TABLET PO SCH (09:00)
[2020-07-21] MEDS ORDERED: LOSARTAN POTASSIUM 100 MG TABLET PO SCH (09:00)
[2020-07-21] MEDS ORDERED: ASPIRIN 81MG TABLET PO SCH (09:00)
[2020-07-21] MEDS ORDERED: CLONIDINE 0.2MG TABLET PO SCH (09:00)
[2020-07-21] MEDS ORDERED: POTASSIUM CHLORIDE 10MEQ TABLET SR PO SCH (09:00)
[2020-07-21] MEDS ORDERED: NITROGLYCERIN 0.1MG/HR PATCH TOP SCH (09:00)
[2020-07-21 09:54] LABS: BASOPHILS % 0.7 % (0.0-2.0); EOSINOPHILS % 2.9 % (0.0-5.0); HEMATOCRIT. 33.4 % (36.0-48.0); LYMPHOCYTES % 30.6 % (20.0-50.0); MEAN CORPUSCULAR VOLUME 85.2 fL (81.0-99.0); MONOCYTES % 6.9 % (2.0-8.0); NEUTROPHILS % 58.9 % (40.0-76.0); PLATELET 159 x1000/uL (130-400); RED BLOOD CELL COUNT 3.92 mill/uL (4.2-5.4); RED CELL DISTRIBUTION WIDTH 15.2 % (11.6-14.6)
[2020-07-21] MEDS ORDERED: INSULIN GLARGINE UD 100 UNITS/ML SYR SUBCUT SCH (10:00)
[2020-07-21] MEDS ORDERED: HYDROCODONE/ACETAMINOPHEN 5/325MG TABLET PO PRN (10:45)
[2020-07-21] MEDS ORDERED: KETOROLAC 15MG/ML VIAL IV PRN (10:45)
[2020-07-21] MEDS ORDERED: POTASSIUM CHLORIDE 20MEQ TABLET SR PO NR ×2 (11:00→15:00)
[2020-07-21] MEDS ORDERED: LEVOFLOXACIN 500MG TABLET PO SCH (11:00)
[2020-07-21] MEDS ORDERED: AMLODIPINE 10MG TABLET PO SCH (11:00)
[2020-07-21 12:00] VITALS: BP 150/79
[2020-07-21] MEDS ORDERED: HYDRALAZINE HCL 50MG TABLET PO SCH (14:00)
[2020-07-21 16:53] VITALS: BP 129/75
[2020-07-22] MEDS ORDERED: LEVOFLOXACIN 250MG TABLET PO SCH (11:00)
== END 2020-07-21 17:29 | disposition home or self-care (01) | DRG 690 ==
LOC: ER 22:21 → 5WST 07-21 01:48 → EDBEDREQ 07-21 01:59 → ENRESERV 07-21 02:35
PROVIDERS: ADMIT Ophthalmology; ATTEND Ophthalmology
DX: N39.0 Urinary tract infection, site not specified (principal); I13.0 Hypertensive heart and chronic kidney disease with heart failure and stage 1 through stage 4 chronic kidney disease, or unspecified chronic kidney disease; I42.9 Cardiomyopathy, unspecified; N20.0 Calculus of kidney; E11.65 Type 2 diabetes mellitus with hyperglycemia; E11.22 Type 2 diabetes mellitus with diabetic chronic kidney disease; I50.9 Heart failure, unspecified; F17.200 Nicotine dependence, unspecified, uncomplicated; J44.9 Chronic obstructive pulmonary disease, unspecified; N18.9 Chronic kidney disease, unspecified; Z91.19 Patient's noncompliance with other medical treatment and regimen; Z79.899 Other long term (current) drug therapy
CPT/HCPCS: 36415; 71045; 74176; 80048; 80053; 81003; 82962; 83605; 85025; 93005; 99285; J0696; J1650; J1815; J1885; J7030

== ENCOUNTER 2020-07-23 03:26 | Inpatient (IN) | payer BC, MEDICAID ==
[~2020-07-23] VITALS: Ht 175.3 cm; Wt 81.6 kg
[~2020-07-23 03:26] MED LIST changes: +MULT-1203 MT
[2020-07-23] MEDS ORDERED: MORPHINE SULFATE 4 MG/ML CPJ (NOT FOR IM USE) IV ONE (03:45)
[2020-07-23 04:24] LABS: CHLORIDE 111 mEq/L (98-107)
[2020-07-23 04:27] LABS: BASOPHILS % 0.7 % (0.0-2.0); EOSINOPHILS % 3.3 % (0.0-5.0); HEMATOCRIT. 34.4 % (36.0-48.0); LYMPHOCYTES % 27.3 % (20.0-50.0); MEAN CORPUSCULAR HEMOGLOBIN 27.3 pg (28.0-32.0); MEAN CORPUSCULAR VOLUME 85.2 fL (81.0-99.0); MEAN PLATELET VOLUME 10.1 fl (7.4-10.4); MONOCYTES % 4.7 % (2.0-8.0); PLATELET 176 x1000/uL (130-400); RED BLOOD CELL COUNT 4.04 mill/uL (4.2-5.4); RED CELL DISTRIBUTION WIDTH 15.1 % (11.6-14.6)
[2020-07-23] MEDS ORDERED: HYDRALAZINE 20MG/ML VIAL IV ONE (07:15)
[2020-07-23 08:59] LABS: *AMPHETAMINES SCREEN URINE NEGATIVE (NEGATIVE); *BARBITURATES SCREEN URINE NEGATIVE (NEGATIVE); *BENZODIAZEPINES SCREEN URINE NEGATIVE (NEGATIVE); *COCAINE SCREEN URINE NEGATIVE (NEGATIVE); METHADONE URINE SCREEN NEGATIVE (NEGATIVE)
[2020-07-23 09:00] LABS: CANNABINOID URINE SCREEN NEGATIVE (NEGATIVE); OPIATES URINE SCREEN PRESUMTIVE POSITIVE (NEGATIVE); PHENCYCLIDINE URINE SCREEN NEGATIVE (NEGATIVE)
[2020-07-23 10:00] VITALS: BP 172/82
[2020-07-23] MEDS ORDERED: CLONIDINE 0.1MG TABLET PO PRN (11:00)
[2020-07-23] MEDS: AMLODIPINE 10MG TABLET PO SCH (11:25)
[2020-07-23 11:54] VITALS: BP 172/82
[2020-07-23 12:00] VITALS: BP 143/80
[2020-07-23] MEDS ORDERED: HYDROCODONE/ACETAMINOPHEN 5/325MG TABLET PO PRN (12:45)
[2020-07-23] MEDS ORDERED: ACETAMINOPHEN 325MG TABLET PO PRN (12:45)
[2020-07-23] MEDS ORDERED: MORPHINE SULFATE 2 MG/ML CPJ (NOT FOR IM USE) IV PRN (12:45)
[2020-07-23] MEDS ORDERED: ONDANSETRON HCL 4MG/2ML INJ IV PRN (12:45)
[2020-07-23] MEDS ORDERED: INSULIN GLARGINE UD 100 UNITS/ML SYR SUBCUT SCH (14:00)
[2020-07-23 16:00] VITALS: BP 153/74
[2020-07-23] MEDS ORDERED: DEXTROSE 50% WATER 50ML SYRINGE IV PRN (17:00)
[2020-07-23] MEDS: BLOOD SUGAR DIAGNOSTIC STRIP TEST SCH ×2 (17:06→21:41)
[2020-07-23] MEDS: INSULIN LISPRO 100 UNITS/ML SUBCUT SCH ×2 (17:18→20:53)
[2020-07-23 20:00] VITALS: BP 145/89
[2020-07-24] VITALS: BP 138/66
[2020-07-24] MEDS: IBUPROFEN 400MG TABLET PO PRN ×2 (01:53→10:52)
[2020-07-24 04:00] VITALS: BP 128/70
[2020-07-24] MEDS: INSULIN LISPRO 100 UNITS/ML SUBCUT SCH ×2 (06:34→13:47)
[2020-07-24 06:52] LABS: CLARITY URINE CLOUDY (CLEAR); COLOR URINE YELLOW (YELLOW); KETONES URINE NEGATIVE (NEGATIVE); LEUKOCYTE ESTERASE URINE 1+ (NEGATIVE); NITRITE URINE NEGATIVE (NEGATIVE); OCCULT BLOOD URINE 2+ (NEGATIVE); PROTEIN URINE 4+ (NEGATIVE); SPECIFIC GRAVITY URINE 1.021 (1.005-1.030); UROBILINOGEN URINE 0.2 E.U./dL (0.2-1.0)
[2020-07-24] MEDS: BLOOD SUGAR DIAGNOSTIC STRIP TEST SCH ×2 (06:56→12:16)
[2020-07-24] MEDS: AMLODIPINE 10MG TABLET PO SCH (09:00)
[2020-07-24] MEDS ORDERED: LACTULOSE 20G/30ML UDC PO NR (12:00)
[2020-07-24] MEDS ORDERED: CEFTRIAXONE 1 G PREMIX 50 ML IV SCH (12:00)
[2020-07-24] MEDS ORDERED: CEFTRIAXONE 1,000 MG in DEXTROSE 5% WATER 50 ML IV SCH (14:00)
[2020-07-24] MEDS ORDERED: LEVO250T58 MT (14:17)
== END 2020-07-24 17:00 | disposition left against medical advice (07) | DRG 689 ==
LOC: ER 03:26 → 8WST 06:24 → ENRESERV 08:21
PROVIDERS: ADMIT Ophthalmology; ATTEND Ophthalmology
DX: N39.0 Urinary tract infection, site not specified (principal); I50.43 Acute on chronic combined systolic (congestive) and diastolic (congestive) heart failure; I13.0 Hypertensive heart and chronic kidney disease with heart failure and stage 1 through stage 4 chronic kidney disease, or unspecified chronic kidney disease; E44.0 Moderate protein-calorie malnutrition; N17.9 Acute kidney failure, unspecified; I42.9 Cardiomyopathy, unspecified; D25.9 Leiomyoma of uterus, unspecified; D64.9 Anemia, unspecified; E11.22 Type 2 diabetes mellitus with diabetic chronic kidney disease; E11.65 Type 2 diabetes mellitus with hyperglycemia; E87.8 Other disorders of electrolyte and fluid balance, not elsewhere classified; F17.210 Nicotine dependence, cigarettes, uncomplicated; J44.9 Chronic obstructive pulmonary disease, unspecified; N18.9 Chronic kidney disease, unspecified; Z53.29 Procedure and treatment not carried out because of patient's decision for other reasons; Z90.49 Acquired absence of other specified parts of digestive tract; Z68.26 Body mass index [BMI] 26.0-26.9, adult
CPT/HCPCS: 36415; 74176; 76700; 78227; 80053; 80305; 81003; 82962; 84484; 85025; 87186; 93005; 99285; A9537; J0360; J0696; J1815; J2270; J7040; J7060

== ENCOUNTER 2020-07-29 13:07 | Inpatient (IN) | payer BC, MEDICAID ==
[~2020-07-29] VITALS: Ht 165.1 cm; Wt 78.0 kg
[~2020-07-29 13:07] MED LIST changes: +LEVO250T58 MT
[2020-07-29 14:08] LABS: BASOPHILS % 1.2 % (0.0-2.0); EOSINOPHILS % 3.4 % (0.0-5.0); HEMATOCRIT. 36.1 % (36.0-48.0); HEMOGLOBIN. 11.7 g/dL (12.0-16.0); LYMPHOCYTES % 35.4 % (20.0-50.0); MEAN CORPUSCULAR HEMOGLOBIN 27.9 pg (28.0-32.0); MEAN CORPUSCULAR VOLUME 85.9 fL (81.0-99.0); MONOCYTES % 4.8 % (2.0-8.0); NEUTROPHILS % 55.2 % (40.0-76.0); PLATELET 228 x1000/uL (130-400); RED CELL DISTRIBUTION WIDTH 15.4 % (11.6-14.6)
[2020-07-29 14:14] LABS: CHLORIDE 109 mEq/L (98-107)
[2020-07-29] MEDS ORDERED: FUROSEMIDE 40MG/4ML VIAL IV ONE (14:15)
[2020-07-29] MEDS ORDERED: ASPIRIN 81MG TABLET PO ONE (14:15)
[2020-07-29] MEDS ORDERED: NITROGLYCERIN OINT 1GM/INCH UDPKT TD ONE (14:15)
[2020-07-29] MEDS ORDERED: PIPERACILLIN/TAZ 3.375G PREMIX 50 ML IV ONE (15:00)
[2020-07-29] MEDS ORDERED: SODIUM POLYSTYRENE SULFONATE 15 G/60 ML BOT PO ONE (15:00)
[2020-07-29] MEDS ORDERED: VANCOMYCIN 1 G PREMIX 200 ML IV ONE (15:00)
[2020-07-29] MEDS ORDERED: SODIUM BICARBONATE 8.4% 1 MEQ/ML 50ML SYR IV ONE (15:00)
[2020-07-29] MEDS ORDERED: DEXTROSE 50% WATER 50ML SYRINGE IV ONE (15:00)
[2020-07-29] MEDS ORDERED: INSULIN REGULAR (HUMULIN R) 300UNITS/3ML VIAL IV ONE (15:00)
[2020-07-29] MEDS ORDERED: DEXAMETHASONE 10 MG/ML VIAL IV ONE (16:15)
[2020-07-29 17:55] LABS: CLARITY URINE CLEAR (CLEAR); COLOR URINE YELLOW (YELLOW); KETONES URINE NEGATIVE (NEGATIVE); LEUKOCYTE ESTERASE URINE TRACE (NEGATIVE); NITRITE URINE NEGATIVE (NEGATIVE); OCCULT BLOOD URINE TRACE (NEGATIVE); PH URINE 5.5 (4.5-8.0); PROTEIN URINE 3+ (NEGATIVE); SPECIFIC GRAVITY URINE 1.012 (1.005-1.030); UROBILINOGEN URINE 0.2 E.U./dL (0.2-1.0)
[2020-07-29 22:20] VITALS: BP 166/105
[2020-07-29] MEDS ORDERED: LEVA15HF6 IH (23:18)
[2020-07-29] MEDS ORDERED: OMEP40CA12 PO (23:19)
[2020-07-29] MEDS ORDERED: DULO30CA2 PO (23:20)
[2020-07-29] MEDS ORDERED: BISA10SU62 RC (23:20)
[2020-07-29] MEDS: DULOXETINE HCL 30MG DR CAPSULE PO SCH (23:30)
[2020-07-29] MEDS ORDERED: ACETAMINOPHEN 325MG TABLET PO PRN (23:30)
[2020-07-29] MEDS ORDERED: IPRATROPIUM/ALBUTEROL 0.5-3(2.5)MG/3ML NEB HHN PRN (23:30)
[2020-07-29] MEDS ORDERED: ZOLPIDEM TARTRATE 5MG TABLET PO PRN (23:30)
[2020-07-29] MEDS ORDERED: CLONIDINE 0.1MG TABLET PO PRN (23:30)
[2020-07-29] MEDS ORDERED: ONDANSETRON HCL 4MG/2ML INJ IV PRN (23:30)
[2020-07-29] MEDS ORDERED: ENOXAPARIN 40MG/0.4ML SYR SUBCUT SCH (23:45)
[2020-07-30] VITALS: BP 142/86
[2020-07-30] MEDS: LOSARTAN POTASSIUM 100 MG TABLET PO SCH ×2 (00:18→09:06)
[2020-07-30] MEDS: FUROSEMIDE 40MG/4ML VIAL IVP SCH ×2 (00:19→11:30)
[2020-07-30 04:00] VITALS: BP 155/79
[2020-07-30] MEDS ORDERED: METHYLPREDNISOLONE SOD SUCC 40 MG/ML VIAL IV SCH (07:30)
[2020-07-30 08:00] VITALS: BP 177/101
[2020-07-30] MEDS: INSULIN LISPRO 100 UNITS/ML SUBCUT SCH ×2 (08:30→13:07)
[2020-07-30] MEDS ORDERED: DEXTROSE 50% WATER 50ML SYRINGE IV PRN (08:45)
[2020-07-30] MEDS ORDERED: CARVEDILOL 12.5MG TABLET PO SCH (09:00)
[2020-07-30] MEDS: LEVOFLOXACIN 500MG PREMIX 100 ML IV SCH ×2 (09:00→09:07)
[2020-07-30] MEDS ORDERED: ASPIRIN 81MG TABLET PO SCH (09:00)
[2020-07-30] MEDS ORDERED: CLONIDINE 0.2MG TABLET PO SCH (09:00)
[2020-07-30] MEDS: DULOXETINE HCL 30MG DR CAPSULE PO SCH (09:06)
[2020-07-30] MEDS ORDERED: INSULIN LISPRO 100 UNITS/ML SUBCUT NR (12:00)
[2020-07-30] MEDS ORDERED: FUROSEMIDE 40MG TABLET PO NR (12:00)
[2020-07-30] MEDS ORDERED: LEVOFLOXACIN 500MG TABLET PO NR (12:15)
[2020-07-30 12:16] LABS: BASOPHILS % 0.6 % (0.0-2.0); EOSINOPHILS % 0.3 % (0.0-5.0); HEMATOCRIT. 34.1 % (36.0-48.0); HEMOGLOBIN. 10.9 g/dL (12.0-16.0); LYMPHOCYTES % 17.9 % (20.0-50.0); MEAN CORPUSCULAR HEMOGLOBIN 27.8 pg (28.0-32.0); MEAN CORPUSCULAR VOLUME 87.5 fL (81.0-99.0); MEAN PLATELET VOLUME 10.4 fl (7.4-10.4); MONOCYTES % 4.4 % (2.0-8.0); NEUTROPHILS % 76.8 % (40.0-76.0); PLATELET 207 x1000/uL (130-400); RED CELL DISTRIBUTION WIDTH 15.6 % (11.6-14.6)
[2020-07-30] MEDS ORDERED: BLOOD SUGAR DIAGNOSTIC STRIP TEST SCH (12:40)
[2020-07-30] MEDS ORDERED: INSULIN GLARGINE UD 100 UNITS/ML SYR SUBCUT SCH (22:00)
[2020-07-31] MEDS ORDERED: LEVOFLOXACIN 250MG PREMIX 50 ML IV SCH (09:00)
== END 2020-07-30 14:57 | disposition left against medical advice (07) | DRG 291 ==
LOC: ER 13:20 → 7WST 15:39 → EDBEDREQ 17:18 → ENRESERV 19:43
PROVIDERS: ADMIT Ophthalmology; ATTEND Ophthalmology
DX: I13.0 Hypertensive heart and chronic kidney disease with heart failure and stage 1 through stage 4 chronic kidney disease, or unspecified chronic kidney disease (principal); J96.91 Respiratory failure, unspecified with hypoxia; E43 Unspecified severe protein-calorie malnutrition; I50.23 Acute on chronic systolic (congestive) heart failure; J44.0 Chronic obstructive pulmonary disease with (acute) lower respiratory infection; N39.0 Urinary tract infection, site not specified; J45.901 Unspecified asthma with (acute) exacerbation; N17.9 Acute kidney failure, unspecified; N18.4 Chronic kidney disease, stage 4 (severe); E11.22 Type 2 diabetes mellitus with diabetic chronic kidney disease; E11.65 Type 2 diabetes mellitus with hyperglycemia; F17.210 Nicotine dependence, cigarettes, uncomplicated; I25.10 Atherosclerotic heart disease of native coronary artery without angina pectoris; E87.5 Hyperkalemia; Z20.822 Contact with and (suspected) exposure to COVID-19; Z53.29 Procedure and treatment not carried out because of patient's decision for other reasons; D21.9 Benign neoplasm of connective and other soft tissue, unspecified; J20.9 Acute bronchitis, unspecified; Z82.49 Family history of ischemic heart disease and other diseases of the circulatory system; Z90.49 Acquired absence of other specified parts of digestive tract; Z83.3 Family history of diabetes mellitus; Z68.28 Body mass index [BMI] 28.0-28.9, adult
CPT/HCPCS: 36415; 71045; 80048; 80053; 81003; 82962; 83605; 83880; 84484; 85025; 93005; 99285; C1893; J1100; J1650; J1815; J1940; J1956; J2543; J2920; J3370; J3490; U0003

== ENCOUNTER 2020-08-12 15:59 | Emergency (ER) | payer BC, MEDICAID ==
[~2020-08-12] VITALS: Ht 165.1 cm; Wt 95.0 kg
[~2020-08-12 15:59] MED LIST changes: +BISA10SU62 RC; +DULO30CA2 PO; +LEVA15HF6 IH; -LEVO250T58 MT; +OMEP40CA12 PO
[2020-08-12] MEDS ORDERED: SODIUM CHLORIDE 0.9% 1,000 ML IV ONE (16:30)
[2020-08-12 17:12] LABS: EOSINOPHILS % 1.6 % (0.0-5.0); HEMATOCRIT. 36.5 % (36.0-48.0); HEMOGLOBIN. 11.6 g/dL (12.0-16.0); LYMPHOCYTES % 31.7 % (20.0-50.0); MEAN CORPUSCULAR HEMOGLOBIN 26.7 pg (28.0-32.0); MEAN CORPUSCULAR VOLUME 84.1 fL (81.0-99.0); MEAN PLATELET VOLUME 10.5 fl (7.4-10.4); MONOCYTES % 5.4 % (2.0-8.0); NEUTROPHILS % 60.3 % (40.0-76.0); PLATELET 165 x1000/uL (130-400); RED BLOOD CELL COUNT 4.34 mill/uL (4.2-5.4); RED CELL DISTRIBUTION WIDTH 14.3 % (11.6-14.6)
[2020-08-12 17:21] LABS: CHLORIDE 111 mEq/L (98-107)
[2020-08-12 17:27] LABS: PROTHROMBIN TIME 10.8 sec (9.6-11.0)
[2020-08-12 17:33] LABS: BETA HYDROXYBUTYRATE 0.1 mMol/L (0.0-0.3)
[2020-08-12 21:54] LABS: CLARITY URINE CLEAR (CLEAR); COLOR URINE YELLOW (YELLOW); KETONES URINE NEGATIVE (NEGATIVE); LEUKOCYTE ESTERASE URINE 1+ (NEGATIVE); NITRITE URINE NEGATIVE (NEGATIVE); OCCULT BLOOD URINE TRACE (NEGATIVE); PROTEIN URINE 4+ (NEGATIVE); SPECIFIC GRAVITY URINE 1.019 (1.005-1.030); UROBILINOGEN URINE 0.2 E.U./dL (0.2-1.0)
[2020-08-13] MEDS ORDERED: FUROSEMIDE 40MG/4ML VIAL IVP NR
[2020-08-13] MEDS ORDERED: CEFTRIAXONE 1 G PREMIX 50 ML IV NR (00:30)
[2020-08-13 06:23] VITALS: BP 181/107
== END 2020-08-13 06:37 | disposition short-term general hospital (02) ==
LOC: ER 15:59
DX: I11.0 Hypertensive heart disease with heart failure (principal); I50.9 Heart failure, unspecified; J45.909 Unspecified asthma, uncomplicated; E11.65 Type 2 diabetes mellitus with hyperglycemia; Z79.899 Other long term (current) drug therapy; R06.02 Shortness of breath; Z79.4 Long term (current) use of insulin
CPT/HCPCS: 36415; 71045; 80053; 81003; 82010; 82962; 83880; 84484; 85025; 85610; 87086; 93005; 96361; 96365; 96375; 99285; J0696; J1940; J7030

== ENCOUNTER 2020-08-21 23:28 | Emergency (ER) | payer BC, MEDICAID ==
[~2020-08-21] VITALS: Ht 167.6 cm; Wt 86.0 kg
[2020-08-22 00:08] LABS: BASOPHILS % 1.6 % (0.0-2.0); HEMATOCRIT. 37.8 % (36.0-48.0); HEMOGLOBIN. 12.7 g/dL (12.0-16.0); LYMPHOCYTES % 32.3 % (20.0-50.0); MEAN CORPUSCULAR HEMOGLOBIN 27.8 pg (28.0-32.0); MEAN CORPUSCULAR VOLUME 82.9 fL (81.0-99.0); MEAN PLATELET VOLUME 9.9 fl (7.4-10.4); MONOCYTES % 4.6 % (2.0-8.0); NEUTROPHILS % 59.5 % (40.0-76.0); PLATELET 207 x1000/uL (130-400); RED BLOOD CELL COUNT 4.56 mill/uL (4.2-5.4); RED CELL DISTRIBUTION WIDTH 14.2 % (11.6-14.6)
[2020-08-22 00:14] LABS: CHLORIDE 108 mEq/L (98-107)
[2020-08-22] MEDS ORDERED: FUROSEMIDE 40MG/4ML VIAL IVP NR (03:00)
[2020-08-22] MEDS ORDERED: HYDROCODONE/ACETAMINOPHEN 5/325MG TABLET PO NR (03:00)
[2020-08-22] MEDS ORDERED: MORPHINE SULFATE 2 MG/ML CPJ (NOT FOR IM USE) IV ONE (03:00)
[2020-08-22 05:30] VITALS: BP 198/116
== END 2020-08-22 05:30 | disposition left against medical advice (07) ==
LOC: ER 23:28 → CANRESERV 08-22 07:33 → ENRESERV 08-22 07:33 → CANBEDREQ 08-22 16:39
DX: I11.0 Hypertensive heart disease with heart failure (principal); I50.9 Heart failure, unspecified; J45.909 Unspecified asthma, uncomplicated; J44.9 Chronic obstructive pulmonary disease, unspecified; E11.9 Type 2 diabetes mellitus without complications; F17.290 Nicotine dependence, other tobacco product, uncomplicated; Z79.4 Long term (current) use of insulin; Z79.899 Other long term (current) drug therapy; Z79.82 Long term (current) use of aspirin
CPT/HCPCS: 36415; 71045; 80053; 82962; 83880; 84484; 85025; 93005; 96374; 99285; J2270

== ENCOUNTER 2020-09-19 22:21 | Inpatient (IN) | payer MEDICARE, MEDICAID ==
[~2020-09-19] VITALS: Ht 167.6 cm; Wt 89.8 kg
[~2020-09-19 22:21] MED LIST changes: +ZOLP5TAB2 MT
[2020-09-19 23:09] LABS: BASOPHILS % 1.2 % (0.0-2.0); EOSINOPHILS % 2.6 % (0.0-5.0); HEMATOCRIT. 35.7 % (36.0-48.0); HEMOGLOBIN. 11.8 g/dL (12.0-16.0); LYMPHOCYTES % 40.2 % (20.0-50.0); MEAN CORPUSCULAR HEMOGLOBIN 27.9 pg (28.0-32.0); MEAN CORPUSCULAR VOLUME 84.3 fL (81.0-99.0); MONOCYTES % 5.8 % (2.0-8.0); NEUTROPHILS % 50.2 % (40.0-76.0); RED BLOOD CELL COUNT 4.24 mill/uL (4.2-5.4); RED CELL DISTRIBUTION WIDTH 14.5 % (11.6-14.6)
[2020-09-19 23:14] LABS: CHLORIDE 105 mEq/L (98-107)
[2020-09-19 23:21] LABS: MEAN PLATELET VOLUME 10.4 fl (7.4-10.4); PLATELET 194 x1000/uL (130-400)
[2020-09-20] MEDS ORDERED: ASPIRIN 81MG TABLET PO NR (00:30)
[2020-09-20] MEDS ORDERED: FUROSEMIDE 40MG/4ML VIAL IVP NR (01:00)
[2020-09-20] MEDS ORDERED: BUMETANIDE 1MG/4ML VIAL IV ONE (01:00)
[2020-09-20] MEDS ORDERED: ZOLPIDEM TARTRATE 5MG TABLET PO ONE (02:15)
[2020-09-20] MEDS ORDERED: ONDANSETRON HCL 4MG/2ML INJ IV PRN (08:15)
[2020-09-20] MEDS ORDERED: ACETAMINOPHEN 325MG TABLET PO PRN (08:15)
[2020-09-20] MEDS ORDERED: DEXTROSE 50% WATER 50ML SYRINGE IV PRN (08:15)
[2020-09-20] MEDS ORDERED: BLOOD SUGAR DIAGNOSTIC STRIP TEST SCH (09:00)
[2020-09-20] MEDS ORDERED: FUROSEMIDE 40MG/4ML VIAL IVP SCH (09:00)
[2020-09-20] MEDS ORDERED: LOSARTAN POTASSIUM 100 MG TABLET PO SCH (09:00)
[2020-09-20] MEDS ORDERED: CARVEDILOL 12.5MG TABLET PO SCH (09:00)
[2020-09-20] MEDS: INSULIN LISPRO 100 UNITS/ML SUBCUT SCH ×2 (09:11→13:35)
[2020-09-20] MEDS ORDERED: INSULIN GLARGINE UD 100 UNITS/ML SYR SUBCUT SCH (10:00)
[2020-09-20 11:37] VITALS: BP 150/92
[2020-09-20 12:00] VITALS: BP 160/81
[2020-09-20] MEDS ORDERED: IPRATROPIUM/ALBUTEROL 0.5-3(2.5)MG/3ML NEB HHN SCH (12:00)
[2020-09-20] MEDS ORDERED: CLONIDINE 0.2MG TABLET PO SCH (12:15)
[2020-09-20] MEDS ORDERED: ZOLPIDEM TARTRATE 5MG TABLET PO PRN (12:15)
[2020-09-20] MEDS ORDERED: LACTULOSE 20G/30ML UDC PO NR (12:15)
[2020-09-20] MEDS ORDERED: BUMETANIDE 1MG/4ML VIAL IV SCH (12:15)
[2020-09-20] MEDS ORDERED: SORBITOL 70% SOLN 30ML PO NR (15:45)
== END 2020-09-20 15:50 | disposition left against medical advice (07) | DRG 291 ==
LOC: ER 22:21 → 5WST 09-20 04:35 → EDBEDREQ 09-20 04:48 → EDBEDREQTM 09-20 04:48 → ENRESERV 09-20 07:35
PROVIDERS: ADMIT Internal Medicine; ATTEND Internal Medicine
DX: I13.0 Hypertensive heart and chronic kidney disease with heart failure and stage 1 through stage 4 chronic kidney disease, or unspecified chronic kidney disease (principal); I50.43 Acute on chronic combined systolic (congestive) and diastolic (congestive) heart failure; J96.00 Acute respiratory failure, unspecified whether with hypoxia or hypercapnia; E44.0 Moderate protein-calorie malnutrition; J44.1 Chronic obstructive pulmonary disease with (acute) exacerbation; N17.9 Acute kidney failure, unspecified; E11.22 Type 2 diabetes mellitus with diabetic chronic kidney disease; E11.65 Type 2 diabetes mellitus with hyperglycemia; I42.9 Cardiomyopathy, unspecified; E66.9 Obesity, unspecified; F17.210 Nicotine dependence, cigarettes, uncomplicated; I27.20 Pulmonary hypertension, unspecified; K59.00 Constipation, unspecified; N18.9 Chronic kidney disease, unspecified; Z82.49 Family history of ischemic heart disease and other diseases of the circulatory system; Z53.29 Procedure and treatment not carried out because of patient's decision for other reasons; Z68.32 Body mass index [BMI] 32.0-32.9, adult; Z71.6 Tobacco abuse counseling; Z71.3 Dietary counseling and surveillance
CPT/HCPCS: 36415; 71045; 80053; 82962; 83880; 84484; 85025; 93005; 99285; J1815; J1940; J3490

== ENCOUNTER 2020-09-25 15:54 | Emergency (ER) | payer BC, MEDICAID ==
[~2020-09-25] VITALS: Ht 175.3 cm; Wt 86.0 kg
[2020-09-25 15:56] VITALS: BP 148/96
== END 2020-09-25 17:30 | disposition left against medical advice (07) ==
LOC: ER 15:54
DX: Z53.21 Procedure and treatment not carried out due to patient leaving prior to being seen by health care provider (principal)
CPT/HCPCS: 93005

== ENCOUNTER 2020-11-10 15:39 | Emergency (ER) | payer MEDICARE, BC, MEDICAID ==
[~2020-11-10] VITALS: Ht 170.2 cm; Wt 80.0 kg
[2020-11-10] MEDS ORDERED: SODIUM CHLORIDE 0.9% 250 ML IV ONE (17:30)
[2020-11-10 18:01] LABS: BASOPHILS % 0.5 % (0.0-2.0); EOSINOPHILS % 2.2 % (0.0-5.0); HEMOGLOBIN. 12.5 g/dL (12.0-16.0); LYMPHOCYTES % 34.3 % (20.0-50.0); MEAN CORPUSCULAR HEMOGLOBIN 27.6 pg (28.0-32.0); MEAN CORPUSCULAR VOLUME 81.6 fL (81.0-99.0); MEAN PLATELET VOLUME 10.9 fl (7.4-10.4); MONOCYTES % 4.4 % (2.0-8.0); NEUTROPHILS % 58.6 % (40.0-76.0); PLATELET 172 x1000/uL (130-400); RED BLOOD CELL COUNT 4.53 mill/uL (4.2-5.4); RED CELL DISTRIBUTION WIDTH 13.7 % (11.6-14.6)
[2020-11-10 18:07] LABS: CHLORIDE 104 mEq/L (98-107)
[2020-11-10 18:15] LABS: BETA HYDROXYBUTYRATE 0.1 mMol/L (0.0-0.3)
[2020-11-10] MEDS ORDERED: INSULIN REGULAR (HUMULIN R) 300UNITS/3ML VIAL SUBCUT SCH (19:00)
[2020-11-10 19:29] LABS: CLARITY URINE CLEAR (CLEAR); COLOR URINE YELLOW (YELLOW); KETONES URINE NEGATIVE (NEGATIVE); LEUKOCYTE ESTERASE URINE TRACE (NEGATIVE); NITRITE URINE NEGATIVE (NEGATIVE); OCCULT BLOOD URINE TRACE (NEGATIVE); PROTEIN URINE 3+ (NEGATIVE); SPECIFIC GRAVITY URINE 1.011 (1.005-1.030); UROBILINOGEN URINE 0.2 E.U./dL (0.2-1.0)
[2020-11-10] MEDS ORDERED: FUROSEMIDE 40MG/4ML VIAL IVP ONE (19:30)
[2020-11-10 20:00] VITALS: BP 157/89
== END 2020-11-10 21:15 | disposition left against medical advice (07) ==
LOC: ER 15:39
DX: I11.0 Hypertensive heart disease with heart failure (principal); I50.9 Heart failure, unspecified; N17.9 Acute kidney failure, unspecified; J90 Pleural effusion, not elsewhere classified; E11.65 Type 2 diabetes mellitus with hyperglycemia; J44.1 Chronic obstructive pulmonary disease with (acute) exacerbation; J45.909 Unspecified asthma, uncomplicated; Z79.4 Long term (current) use of insulin; Z79.82 Long term (current) use of aspirin; Z79.899 Other long term (current) drug therapy; Z90.49 Acquired absence of other specified parts of digestive tract
CPT/HCPCS: 36415; 71045; 74176; 80053; 81003; 82010; 82962; 83690; 83880; 84484; 85025; 93005; 99285; J1815; J1940; J7050